=== PATIENT | female | born 1935 | race Caucasian/White ===

== ENCOUNTER 2017-07-03 15:50 | Emergency (ER) | payer MEDICARE, OTHER ==
[~2017-07-03] VITALS: Ht 165.1 cm; Wt 79.4 kg
[~2017-07-03 15:50] MED LIST: ACETAMINOPHEN-1 EAC1 PO; ADULT LOW DOSE81 MG PO; ALBUTEROL2.5 MG/0.5 INH; AMLODIPINE BESYL5 MG PO; ASPIR 8181 MG PO; BACTRIM DS TAB1 EACH PO; BANOPHEN25 MG PO; CALCIUM OYSTER500 MG PO; CALCIUM PO; CALICUM 500+D1 EACH; CIPROFLOXACIN500 M1 PO; CLEOCIN HCL300 MG PO; CLONAZEPAM; COLACE100 MG PO; FISH OIL 1,0001 EAC5 PO; FISH OIL 1,001000 M2 PO; FLAGYL500 MG PO; IRON325 PO; KEFLEX500 MG PO; LEVAQUIN 500 M500 M2 PO; LISINOPRIL20 MG; LISINOPRIL20 MG PO; NASONEX17 GM; PANTOPRAZOLE SO40 M1 PO; PEPCID20 MG PO; PROBIOTIC1 EAC1 PO; RED YEAST RICE600 M1 PO; SENNA PO; TYLENOL325 MG PO; VICODIN; VICODIN 5-5001 EACH PO; VITAMIN D1000 UNI1 PO; XANAX 0.5 MG0.5 M1 PO; ZESTORETIC 20-1 EACH PO
[2017-07-03] MEDS ORDERED: XARELTO20 MG PO (15:58)
[2017-07-03] MEDS ORDERED: DOXYCYCLINE 10100 MG PO (15:59)
[2017-07-03] MEDS ORDERED: REFRESH CLASSI1 EACH OPHTHALMIC (15:59)
[2017-07-03 16:33] LABS: ABSOLUTE BASOPHILS 0.1 thou/uL (0.0-0.2); ABSOLUTE EOSINOPHILS 0.1 thou/uL (0.0-0.7); ABSOLUTE MONOCYTES 0.6 thou/uL (0.0-1.2); ABSOLUTE NEUTROPHILS 7.8 thou/uL (1.6-8.1); EOSINOPHILS 0.6 %; HEMATOCRIT 37.8 % (37.0-47.0); HEMOGLOBIN 13.2 gm/dL (12.0-15.0); LYMPHOCYTES 19.2 %; MCH 29.7 pg (26.0-34.0); MCHC 34.9 g/dL (28.0-37.0); MCV 85.3 fL (80.0-100.0); MONOCYTES 5.7 %; NUCLEATED RBCS 0 /100WBC; PLATELET COUNT* 235 thou/uL (150-400); POLYS 73.5 %; RBC 4.43 mil/uL (4.20-5.00); RDW-CV 13.1 % (10.5-14.5); WBC 10.6 thou/uL (4.0-11.0)
[2017-07-03 16:36] LABS: CALCIUM 9.5 mg/dL (8.5-10.1); CREATININE 0.8 mg/dL (0.6-1.3); POTASSIUM 4.1 mmol/L (3.5-5.1)
[2017-07-03 16:41] LABS: ALBUMIN 3.9 g/dL (3.4-5.0); MAGNESIUM 1.8 mg/dL (1.8-2.4); TOTAL BILIRUBIN 0.4 mg/dL (<0.1-1.0); TOTAL PROTEIN 7.8 g/dL (6.4-8.2)
[2017-07-03 17:02] LABS: INFLUENZA A ANTIGEN None Detected (None Detect); INFLUENZA B ANTIGEN None Detected (None Detect)
[2017-07-03 17:42] LABS: BE -1.3 mmol/L (-2 to +3); HCO3 22.2 mmol/L (22.0-26.0); PCO2 33.9 mmHg (35.0-45.0); PO2 78.2 mmHg (75.0-100.0); pH 7.434 (7.340-7.450)
[2017-07-03 17:52] LABS: URINE BILIRUBIN NEGATIVE (Negative); URINE BLOOD NEGATIVE (Negative); URINE CLARITY CLEAR; URINE COLOR YELLOW; URINE GLUCOSE-RANDOM NEGATIVE (Negative); URINE KETONES NEGATIVE (Negative); URINE LEUKOCYTES-REFLEX NEGATIVE (Negative); URINE NITRITE-REFLEX NEGATIVE (Negative); URINE PROTEIN NEGATIVE (Negative); URINE SPECIFIC GRAVITY <= 1.005 (1.005-1.030); URINE UROBILINOGEN 0.2 E.U./dl (0.2-1.0)
[2017-07-03 18:19] VITALS: BP 122/51
--- NOTE | 2017-07-04 13:53 | EKG ---
[place] [address] ELECTROCARDIOGRAM REPORT Name: SHAWN CRAIG Room: [facility]#: [id number] Admission: 07/03/17 Attend Phys: Discharge: 07/03/17 Date of : 33 Report #: [id number] THIS REPORT FOR: //name// [facility] ED Test Date: 2017-07-03 Test Time: 15:55:23 Pat Name: SHAWN CRAIG Department: Room: Gender: F Oil Burner Repairer: : 1935 Requested By: Natalia Kam Order Number: [id number] MD: Efra Hazel Measurements Intervals [place] Rate: 107 P: 93 NC: 47 QRS: -65 QRSD: 158 T: 99 QT: 367 QTc: 490 Interpretive Statements Atrial-sensed ventricular-paced rhythm No further analysis attempted due to paced rhythm Compared to ECG 07/20/2016 15:54:01 No significant changes Electronically Signed On 07-04-2017 13:52:51 DIRECTOR AIRPORT by Efra Hazel [email or web address] <ELECTRONICALLY SIGNED> By: Efra Hazel MD, [facility] 07/04/17 1352 1555 1555 Efra Hazel MD, FACC /EPI
== END 2017-07-03 18:19 | disposition home or self-care (01) ==
LOC: M.ERS 15:50
PROVIDERS: Personal Emergency Response Attendant
DX: F41.9 Anxiety disorder, unspecified (principal); I25.2 Old myocardial infarction; I10 Essential (primary) hypertension; J44.9 Chronic obstructive pulmonary disease, unspecified; Z90.710 Acquired absence of both cervix and uterus; Z90.49 Acquired absence of other specified parts of digestive tract; Z98.890 Other specified postprocedural states; Z95.0 Presence of cardiac pacemaker; Z91.040 Latex allergy status; Z88.0 Allergy status to penicillin; Z88.5 Allergy status to narcotic agent; Z88.8 Allergy status to other drugs, medicaments and biological substances

== ENCOUNTER → 2017-11-09 | Outpatient (CLI) | payer MEDICARE, OTHER ==
[~2017-11-09] MED LIST changes: +DOXYCYCLINE 10100 MG PO; +REFRESH CLASSI1 EACH OPHTHALMIC; +XARELTO20 MG PO
[2017-11-09 11:20] LABS: ABSOLUTE BASOPHILS 0.1 thou/uL (0.0-0.2); ABSOLUTE LYMPHOCYTES 1.5 thou/uL (0.8-5.3); ABSOLUTE MONOCYTES 0.8 thou/uL (0.0-1.2); ABSOLUTE NEUTROPHILS 8.6 thou/uL (1.6-8.1); BASOPHILS 0.6 %; EOSINOPHILS 0.3 %; HEMATOCRIT 40.5 % (37.0-47.0); HEMOGLOBIN 13.3 gm/dL (12.0-15.0); LYMPHOCYTES 13.2 %; MCH 29.1 pg (26.0-34.0); MCHC 32.8 g/dL (28.0-37.0); MCV 88.7 fL (80.0-100.0); MONOCYTES 7.5 %; MPV 7.7 fl. (7.2-11.1); NUCLEATED RBCS 0 /100WBC; PLATELET COUNT* 244 thou/uL (150-400); POLYS 78.4 %; RBC 4.57 mil/uL (4.20-5.00); RDW-CV 13.1 % (10.5-14.5)
[2017-11-09 11:26] LABS: URINE BILIRUBIN NEGATIVE (Negative); URINE BLOOD NEGATIVE (Negative); URINE CLARITY CLEAR; URINE COLOR YELLOW; URINE GLUCOSE-RANDOM NEGATIVE (Negative); URINE KETONES NEGATIVE (Negative); URINE LEUKOCYTES NEGATIVE (Negative); URINE NITRITE NEGATIVE (Negative); URINE PROTEIN NEGATIVE (Negative); URINE UROBILINOGEN 0.2 E.U./dl (0.2-1.0)
[2017-11-09 11:48] LABS: CALCIUM 9.4 mg/dL (8.5-10.1); CREATININE 0.7 mg/dL (0.6-1.3); POTASSIUM 4.4 mmol/L (3.5-5.1)
== END ==
LOC: M.ULTRA 10:11
PROVIDERS: Internal Medicine
DX: N28.1 Cyst of kidney, acquired (principal); I48.0 Paroxysmal atrial fibrillation

== ENCOUNTER 2019-01-18 09:46 | Emergency (ER) | payer MEDICARE, OTHER ==
[~2019-01-18] VITALS: Ht 165.1 cm; Wt 78.9 kg
[2019-01-18] MEDS ORDERED: TOPROL XL25 MG PO (10:13)
[2019-01-18] MEDS ORDERED: ESTRADIOL 1 MG T1 M1 PO (10:14)
[2019-01-18] MEDS ORDERED: FISH OIL 1,001000 M2 PO (10:15)
[2019-01-18] MEDS ORDERED: PROBIOTIC1 EAC2 PO (10:15)
[2019-01-18] MEDS ORDERED: TYLENOL PM EX-1 EACH PO (10:16)
[2019-01-18] MEDS ORDERED: BEANO300 UNIT PO (10:16)
[2019-01-18 10:44] LABS: ABSOLUTE BASOPHILS 0.1 thou/uL (0.0-0.2); ABSOLUTE EOSINOPHILS 0.1 thou/uL (0.0-0.7); ABSOLUTE LYMPHOCYTES 1.4 thou/uL (0.8-5.3); ABSOLUTE MONOCYTES 0.6 thou/uL (0.0-1.2); ABSOLUTE NEUTROPHILS 4.3 thou/uL (1.6-8.1); BASOPHILS 0.8 %; EOSINOPHILS 1.8 %; HEMATOCRIT 38.1 % (37.0-47.0); HEMOGLOBIN 12.9 gm/dL (12.0-15.0); LYMPHOCYTES 22.2 %; MCH 30.9 pg (26.0-34.0); MCV 90.9 fL (80.0-100.0); MONOCYTES 8.7 %; MPV 7.5 fl. (7.2-11.1); NUCLEATED RBCS 0 /100WBC; PLATELET COUNT* 248 thou/uL (150-400); POLYS 66.5 %; RBC 4.19 mil/uL (4.20-5.00); WBC 6.5 thou/uL (4.0-11.0)
[2019-01-18 10:57] LABS: ANION GAP 8 mmol/L (7-16); BUN 12 mg/dL (7-18); CALCIUM 9.4 mg/dL (8.5-10.1); CHLORIDE 100 mmol/L (98-107); CO2 28 mmol/L (21-32); CREATININE 0.6 mg/dL (0.6-1.3); GLUCOSE 100 mg/dL (70-99); SODIUM 136 mmol/L (136-145)
[2019-01-18 11:09] LABS: ALBUMIN 3.5 g/dL (3.4-5.0); ALKALINE PHOSPHATASE 64 U/L (46-116); SGOT 17 U/L (15-37); SGPT 26 U/L (30-65); TOTAL BILIRUBIN 0.3 mg/dL (<0.1-1.0); TOTAL PROTEIN 7.3 g/dL (6.4-8.2); TROPONIN-I LEVEL <0.06 ng/mL (<0.06)
[2019-01-18 11:25] LABS: APTT 32.7 Seconds (25.0-31.3); INR 1.1; PROTIME 11.1 Seconds (9.20-11.50)
[2019-01-18 12:07] LABS: URINE BILIRUBIN NEGATIVE (Negative); URINE BLOOD NEGATIVE (Negative); URINE CLARITY CLEAR; URINE COLOR YELLOW; URINE GLUCOSE-RANDOM NEGATIVE (Negative); URINE KETONES NEGATIVE (Negative); URINE LEUKOCYTES-REFLEX NEGATIVE (Negative); URINE NITRITE-REFLEX NEGATIVE (Negative); URINE PROTEIN NEGATIVE (Negative); URINE SPECIFIC GRAVITY <= 1.005 (1.005-1.030); URINE UROBILINOGEN 0.2 E.U./dl (0.2-1.0)
[2019-01-18] MEDS ORDERED: KEFLEX500 M1 PO (12:22)
[2019-01-18] MEDS ORDERED: ANTIVERT25 MG PO (12:22)
[2019-01-18 12:34] VITALS: BP 166/54
--- NOTE | 2019-01-18 15:22 | EKG ---
[place] [address] ELECTROCARDIOGRAM REPORT Name: SHAWN CRAIG Room: [facility]#: [id number] Admission: 01/18/19 Attend Phys: Discharge: 01/18/19 Date of : 33 Report #: [id number] THIS REPORT FOR: //name// [facility] ED Test Date: 2019-01-18 Test Time: 10:50:51 Pat Name: SHAWN CRAIG Department: Room: Gender: F Return Checker: : 1935 Requested By: Tahmina Martinez Order Number: [id number] MD: Karlo Pleitez Measurements Intervals [place] Rate: 133 P: 0 OK: QRS: 129 QRSD: 167 T: -63 QT: 371 QTc: 552 Interpretive Statements Ventricular-paced complexes No further analysis attempted due to paced rhythm Baseline wander in lead(s) I,III,aVL,aVF Compared to ECG 07/03/2017 15:55:23 no change Electronically Signed On 01-18-2019 15:21:54 CDT by Karlo Pleitez [email or web address] <ELECTRONICALLY SIGNED> By: Karlo Pleitez MD, [facility] 01/18/19 1521 1050 1050 Karlo Pleitez MD, [facility] /EPI
== END 2019-01-18 12:34 | disposition home or self-care (01) ==
LOC: M.ERS 09:46
PROVIDERS: Physician Assistant
DX: H92.23 Otorrhagia, bilateral (principal); R42 Dizziness and giddiness; I25.2 Old myocardial infarction; I10 Essential (primary) hypertension; F41.9 Anxiety disorder, unspecified; J44.9 Chronic obstructive pulmonary disease, unspecified; I48.91 Unspecified atrial fibrillation; Q61.2 Polycystic kidney, adult type; L40.9 Psoriasis, unspecified; Z90.49 Acquired absence of other specified parts of digestive tract; Z90.710 Acquired absence of both cervix and uterus; Z86.14 Personal history of Methicillin resistant Staphylococcus aureus infection; Z95.0 Presence of cardiac pacemaker; Z98.41 Cataract extraction status, right eye; Z91.048 Other nonmedicinal substance allergy status; Z88.0 Allergy status to penicillin; Z88.5 Allergy status to narcotic agent; Z91.040 Latex allergy status; Z88.6 Allergy status to analgesic agent

== ENCOUNTER → 2019-04-11 | Outpatient (CLI) | payer MEDICARE, OTHER ==
[~2019-04-11] MED LIST changes: +ANTIVERT25 MG PO; +BEANO300 UNIT PO; +ESTRADIOL 1 MG T1 M1 PO; +KEFLEX500 M1 PO; +PROBIOTIC1 EAC2 PO; +TOPROL XL25 MG PO; +TYLENOL PM EX-1 EACH PO
== END ==
LOC: M.CT 16:30
DX: M17.11 Unilateral primary osteoarthritis, right knee (principal); M25.861 Other specified joint disorders, right knee; M61.561 Other ossification of muscle, right lower leg

== ENCOUNTER 2019-05-30 15:12 | Inpatient (IN) | payer MEDICARE, OTHER ==
[~2019-05-30] VITALS: Ht 162.6 cm; Wt 73.0 kg
[2019-05-30 15:15] VITALS: BP 137/86
[2019-05-30] MEDS ORDERED: FISH OIL 1,0001 EAC9 PO (15:25)
[2019-05-30] MEDS ORDERED: NON-ASPIRIN EX500 M1 PO (15:25)
[2019-05-30] MEDS ORDERED: MELATONIN5 MG SUBLING (15:26)
[2019-05-30] MEDS ORDERED: VITAMIN B122500 MC1 PO (15:26)
[2019-05-30] MEDS ORDERED: VITAMIN C1000 MG PO (15:26)
[2019-05-30 16:08] LABS: ABSOLUTE EOSINOPHILS 0.1 thou/uL (0.0-0.7); ABSOLUTE LYMPHOCYTES 1.7 thou/uL (0.8-5.3); ABSOLUTE MONOCYTES 0.6 thou/uL (0.0-1.2); ABSOLUTE NEUTROPHILS 4.9 thou/uL (1.6-8.1); BASOPHILS 0.7 %; EOSINOPHILS 1.4 %; HEMATOCRIT 39.7 % (37.0-47.0); HEMOGLOBIN 13.6 gm/dL (12.0-15.0); LYMPHOCYTES 22.7 %; MCH 30.8 pg (26.0-34.0); MCHC 34.2 g/dL (28.0-37.0); MCV 89.9 fL (80.0-100.0); MONOCYTES 8.4 %; MPV 7.8 fl. (7.2-11.1); NUCLEATED RBCS 0 /100WBC; PLATELET COUNT* 248 thou/uL (150-400); POLYS 66.8 %; RBC 4.42 mil/uL (4.20-5.00); RDW-CV 13.7 % (10.5-14.5); WBC 7.4 thou/uL (4.0-11.0)
--- NOTE | 2019-05-30 16:12 | NUR ---
ANDREW NOTIFIED UPON PT RETURN FROM CT. PT CONNECTED TO MONITOR
[2019-05-30 16:17] LABS: APTT 30.2 Seconds (25.0-31.3); INR 1.1
[2019-05-30 16:27] LABS: ALBUMIN 3.5 g/dL (3.4-5.0); CALCIUM 9.7 mg/dL (8.5-10.1); CREATININE 0.7 mg/dL (0.6-1.3); TOTAL BILIRUBIN 0.4 mg/dL (<0.1-1.0); TOTAL PROTEIN 7.3 g/dL (6.4-8.2)
[2019-05-30 16:30] LABS: URINE BILIRUBIN NEGATIVE (Negative); URINE BLOOD NEGATIVE (Negative); URINE COLOR YELLOW; URINE GLUCOSE-RANDOM NEGATIVE (Negative); URINE KETONES NEGATIVE (Negative); URINE LEUKOCYTES-REFLEX TRACE (Negative); URINE NITRITE-REFLEX NEGATIVE (Negative); URINE PROTEIN NEGATIVE (Negative); URINE SPECIFIC GRAVITY <= 1.005 (1.005-1.030); URINE UROBILINOGEN 0.2 E.U./dl (0.2-1.0)
[2019-05-30 16:42] LABS: URINE CLARITY HAZY
[2019-05-30 16:43] LABS: BACTERIA-REFLEX None Seen /HPF (None Seen); SQUAMOUS 4-10 Moderate /LPF (0-3); URINE RBC None Seen /HPF (0-2); URINE WBC-REFLEX 0-5 Rare /HPF (0-5)
[2019-05-30 16:44] LABS: CASTS None Seen /LPF (None Seen); CRYSTALS None Seen /LPF (None Seen)
[2019-05-30 18:13] VITALS: BP 139/61
[2019-05-30 19:30] VITALS: BP 134/47
[2019-05-31] VITALS: BP 146/65
[2019-05-31 04:00] VITALS: BP 142/53
[2019-05-31 04:34] LABS: HEMOGLOBIN 12.6 gm/dL (12.0-15.0); MCHC 34.9 g/dL (28.0-37.0); MCV 88.9 fL (80.0-100.0); MPV 7.8 fl. (7.2-11.1); RBC 4.05 mil/uL (4.20-5.00); RDW-CV 13.9 % (10.5-14.5); WBC 6.8 thou/uL (4.0-11.0)
[2019-05-31 04:46] LABS: CALCIUM 8.9 mg/dL (8.5-10.1); CREATININE 0.6 mg/dL (0.6-1.3); POTASSIUM 3.6 mmol/L (3.5-5.1)
--- NOTE | 2019-05-31 06:38 | NUR ---
VSS. SEE MAR. SEE CHARTING. HOURLY ROUNDING FOR SAFETY.
[2019-05-31 07:45] VITALS: BP 155/61
[2019-05-31] MEDS ORDERED: SENNA-TIME S T1 EACH PO (11:01)
[2019-05-31] MEDS ORDERED: PANTOPRAZOLE SO40 M1 PO (11:01)
[2019-05-31 11:41] VITALS: BP 108/69
[2019-05-31 11:53] VITALS: BP 108/69
--- NOTE | 2019-05-31 14:02 | EKG ---
[place] [address] ELECTROCARDIOGRAM REPORT Name: SHAWN CRAIG Room: [address] ADM IN M.R.#: [id number] Admission: 05/30/19 Attend Phys: Paul Tatum Discharge: Date of : 33 Report #: [id number] THIS REPORT FOR: //name// [facility] ED Test Date: 2019-05-30 Test Time: 15:33:53 Pat Name: SHAWN CRAIG Department: Room: [facility] Gender: F It Security Specialist: ZARINA : 1935 Requested By: Ethan Dixon Order Number: [id number] MD: Mickey Blandon Measurements Intervals [place] Rate: 72 P: 75 ID: 151 QRS: -56 QRSD: 154 T: 104 QT: 432 QTc: 473 Interpretive Statements A-V dual-paced rhythm with some inhibition No further analysis attempted due to paced rhythm Compared to ECG 01/18/2019 10:50:51 No significant changes Electronically Signed On 05-31-2019 14:01:42 BOILER RELINER by Mickey Blandon [email or web address] <ELECTRONICALLY SIGNED> By: Mickey Blandon MD, FACC 05/31/19 1401 1533 1533 Mickey Blandon MD, FAC /EPI
[2019-05-31] MEDS ORDERED: CIPRO250 M2 PO (15:10)
[2019-05-31] MEDS ORDERED: MIRALAX119 GM PO (15:10)
--- NOTE | 2019-05-31 15:35 | NUR ---
PT IS A/O X4,VSS,PT OK FOR DISCHARGE BY HOSPITALIST.PT REFUSED TO DISCHARGE UNTIL SHE SAW HER DATA VIRTUALIZATION CONSULTANT AND GI DOCOTR.PT SEEN BY CONSULTS AND OK FOR DISCHARGE. PT IS NOW AGREEABLE TO DC.PAIN MANAGED WELL WITH PO MEDICATIONS.IV REMOVED.HEART MONITOR REMOVED AND RETURNED TO THE NURSING STATION.ALL PERSONAL BELONGINGS PACKED AND TAKEN WITH PT.JIM SCRIPT [place]ED INTO [facility] [place] [facility]PT GIVEN EDUCATION ON SCRIPT.PT EDUCATED ON FOLLOW UP APPOINTMENTS.PT WAITING IN ROOM FOR RIDE.
--- NOTE | 2019-05-31 17:45 | NUR ---
PT WHEELED OUT BY NURSING STAFF TO PERSONAL VEHICLE @ [id number].
--- NOTE | 2019-06-01 14:27 | CON ---
[address] [address] CONSULTATION Name: SHAWN CRAIG Room: [address] IN M.R.#: [id number] Admission: 05/30/19 Attend Phys: Paul Tatum Discharge: 05/31/19 Date of : 33 Report #: [id number] THIS REPORT FOR: //name// CC: Karlo Soares DICTATED BY: Monica Hernández [facility] DATE OF SERVICE: 05/31/2019 Please note at the time of this dictation, the patient was seen and physically examined by myself. REASON FOR CONSULTATION: Diarrhea. HISTORY OF PRESENT ILLNESS: This is a pleasant 84-year-old female who was recently seen less than a month ago in April by Dr. Das for followup from her inpatient hospitalization in March where she underwent an EGD and colonoscopy that showed gastritis and duodenitis as well as microscopic colitis, in which she was placed on Dexilant daily and started on budesonide 9 mg daily. Her stools had formed up and she was going once a day and was having no issues. However, she has continued to have ongoing issues with some acid reflux. She is also test positive and treated on numerous occasions for small bowel bacterial overgrowth in which she has tried Flagyl, Xifaxan and it sounds like neomycin. She continues to have issues with gas and bloating as well. The patient states that since she has gotten off the budesonide, she will have a bowel movement that is formed, somewhat hard and dry and then subsequently she will have liquid stool swallowing that for 2-3 days. At the end of the third day, she will take 1 Imodium and then she does not go for another 2-3 days at least and then she will go and the cycle keeps repeating itself. She does not take anything for her bowels at this time. She denies any bright red blood or melanotic stool with her bowel movements. When she does have the diarrhea, she may have 2-3 that her loose during the day. No nocturnal or urgency noted. ALLERGIES: INCLUDE LATEX, PENICILLIN, ADHESIVE, MORPHINE, DARVON, DARVOCET, AND VICODIN. MEDICATIONS FROM HOME: Include Xarelto, metoprolol, probiotic, fish oil, melatonin, Zestril, Dexilant, B12, vitamin C. PAST MEDICAL HISTORY: Recent history of microscopic colitis, history of psoriasis, COPD, anxiety, hypertension, irregular heartbeat, AFib, history of [place], polycystic renal disease. PAST SURGICAL HISTORY: Hysterectomy, cholecystectomy, appendectomy, [place] [address] CONSULTATION Name: SHAWN CRAIG Room: [address] IN M.R.#: [id number] Admission: 05/30/19 Attend Phys: Paul Tatum Discharge: 05/31/19 Date of : 33 Report #: [id number] resection, pacemaker and cataract implant. FAMILY HISTORY: Noncontributory. SOCIAL HISTORY: Denies any alcohol, tobacco or illegal drug use. REVIEW OF SYSTEMS: Twelve-point review of systems is essentially negative except what is mentioned in the HPI. PHYSICAL EXAMINATION: VITAL SIGNS: Temperature 36.3, pulse 71, respirations 18, blood pressure 155/61. HEART: Regular rate and rhythm. LUNGS: Clear. ABDOMEN: Soft, positive bowel sounds in all 4 quadrants with no masses or tenderness noted. LABORATORY DATA: Hemoglobin is 12.6, white count is 6.8, platelets 226. GFR is 95. Her BNP was 672. PT is 111. INR was 1.1. IMPRESSION: 1. Alternating bowel habits, constipation to diarrhea since tapering off the budesonide. 2. Gastroesophageal reflux disease, worsening. 3. Small bowel bacterial overgrowth. 4. Anticoagulant therapy, Xarelto, atrial fibrillation history. PLAN: 1. Protonix b.i.d. 2. Regular diet. 3. We will start the patient on senna once a day to help with her bowel habits to prevent constipation, so that she does not have diarrhea and has to take an Imodium. 4. All of this was discussed with the patient and we will see how she does. Thank you for allowing us to participate in this patient's care. Please do not hesitate to call with any questions in regard to this consult. <ELECTRONICALLY SIGNED> By: Jimbo Field MD 06/01/19 1427 1005 1025Jimbo Field MD /nt
== END 2019-05-31 17:35 | disposition home or self-care (01) | DRG 305 ==
LOC: M.ERS 15:12 → M.TBA-ER 16:18 → M.2W 16:18
PROVIDERS: Family Medicine; ADMIT Family Medicine
DX: I16.0 Hypertensive urgency (principal); Q61.3 Polycystic kidney, unspecified; F41.9 Anxiety disorder, unspecified; J44.9 Chronic obstructive pulmonary disease, unspecified; I10 Essential (primary) hypertension; I48.0 Paroxysmal atrial fibrillation; K21.9 Gastro-esophageal reflux disease without esophagitis; K59.00 Constipation, unspecified; Z79.01 Long term (current) use of anticoagulants; I25.10 Atherosclerotic heart disease of native coronary artery without angina pectoris; Z87.891 Personal history of nicotine dependence; Z90.710 Acquired absence of both cervix and uterus; Z90.49 Acquired absence of other specified parts of digestive tract; Z95.0 Presence of cardiac pacemaker; I25.2 Old myocardial infarction; Z98.41 Cataract extraction status, right eye; Z88.0 Allergy status to penicillin; Z88.8 Allergy status to other drugs, medicaments and biological substances; Z88.6 Allergy status to analgesic agent; Z91.040 Latex allergy status

== ENCOUNTER → 2019-06-19 | Outpatient (CLI) | payer MEDICARE, OTHER ==
[~2019-06-19] MED LIST changes: +CIPRO250 M2 PO; +FISH OIL 1,0001 EAC9 PO; +MELATONIN5 MG SUBLING; +MIRALAX119 GM PO; +NON-ASPIRIN EX500 M1 PO; +SENNA-TIME S T1 EACH PO; +VITAMIN B122500 MC1 PO; +VITAMIN C1000 MG PO
== END ==
LOC: M.ULTRA 08:55
DX: I12.9 Hypertensive chronic kidney disease with stage 1 through stage 4 chronic kidney disease, or unspecified chronic kidney disease (principal); N18.3 Chronic kidney disease, stage 3 (moderate); Q61.3 Polycystic kidney, unspecified